=== PATIENT | female | born 1990 | race African-American/Black ===

== ENCOUNTER 2020-01-14 13:05 | Emergency (ER) | payer MEDICAID ==
[~2020-01-14] VITALS: Ht 157.5 cm; Wt 52.5 kg
[2020-01-14] MEDS ORDERED: pepcid (13:11)
[2020-01-14] MEDS ORDERED: ONDANSETRON HCL 4MG/2ML INJ IV STA (13:52)
[2020-01-14] MEDS ORDERED: SODIUM CHLORIDE 0.9% 1,000 ML IV ONE (13:52)
[2020-01-14 14:26] LABS: BASOPHILS % 0.6 % (0.0-2.0); EOSINOPHILS % 0.8 % (0.0-5.0); HEMATOCRIT. 42.4 % (36.0-48.0); HEMOGLOBIN. 14.2 g/dL (12.0-16.0); LYMPHOCYTES % 15.5 % (20.0-50.0); MEAN CORPUSCULAR HEMOGLOBIN 31.9 pg (28.0-32.0); MEAN CORPUSCULAR VOLUME 95.1 fL (81.0-99.0); MONOCYTES % 6.1 % (2.0-8.0); PLATELET 182 x1000/uL (130-400); RED BLOOD CELL COUNT 4.46 mill/uL (4.2-5.4); RED CELL DISTRIBUTION WIDTH 13.3 % (11.6-14.6)
[2020-01-14 14:32] LABS: CHLORIDE 111 mEq/L (98-107)
[2020-01-14 14:42] LABS: HCG SCREEN NEGATIVE
[2020-01-14] MEDS ORDERED: HYDROCODONE/ACETAMINOPHEN 5/325MG TABLET PO ONE (15:00)
[2020-01-14] MEDS ORDERED: VISCOUS LIDOCAINE 2% 15 ML UDC PO STA (16:48)
[2020-01-14] MEDS ORDERED: MAGNESIUM/ALUMINUM HYDROXIDE/SIMETHICONE 30ML UDC PO STA (16:48)
[2020-01-14 17:22] VITALS: BP 119/60
== END 2020-01-14 17:34 | disposition home or self-care (01) ==
LOC: ER 13:25
DX: S09.90XA Unspecified injury of head, initial encounter (principal); K29.00 Acute gastritis without bleeding; R42 Dizziness and giddiness; Y04.0XXA Assault by unarmed brawl or fight, initial encounter; Y93.89 Activity, other specified; Y92.89 Other specified places as the place of occurrence of the external cause; Y99.8 Other external cause status
CPT/HCPCS: 36415; 70450; 70486; 80053; 81025; 83690; 84703; 85025; 96361; 96374; 99285; J2405; J7030